=== PATIENT | female | born 1950 | race Caucasian/White ===

== ENCOUNTER → 2016-08-17 | Outpatient (CLI) | payer OTHER | END | disposition home or self-care (01) | LOC: CFH 07:12 | PROVIDERS: ATTEND Nurse Practitioner Family | DX: Q60.0 Renal agenesis, unilateral (principal); K21.9 Gastro-esophageal reflux disease without esophagitis; R11.0 Nausea | CPT/HCPCS: 76700 ==

== ENCOUNTER → 2016-10-16 | Outpatient (CLI) | payer OTHER ==
[~2016-10-16] MED LIST: AMLO10TA2 PO; ASPI-650 PO; CETI10CA PO; CHOL200012 PO; FOLI-17 PO; GEMF600T3 PO; LACT1CAP35 PO; LORA0.5T PO; LOSA1TAB17 PO; METH2.5T PO; OMEP-110 PO; PSYL660P PO; VITA1TAB19 PO; magnesium PO
[2016-10-16 12:37] LABS: ASPARTATE AMINO TRANSFERASE 48 U/L (15-37); BLOOD UREA NITROGEN 25 mg/dL (7-18)
== END | disposition home or self-care (01) ==
LOC: STAR 11:15
PROVIDERS: ATTEND Surgery
DX: Z01.818 Encounter for other preprocedural examination (principal)
CPT/HCPCS: 36415; 80053; 93005

== ENCOUNTER 2016-10-29 06:06 | Day surgery (SDC) | payer OTHER ==
[~2016-10-29] VITALS: Ht 162.6 cm; Wt 72.0 kg
[2016-10-29] MEDS ORDERED: BUPIVACAINE/PF-EPI 0.5% 1:200K ONE (06:55)
[2016-10-29] MEDS ORDERED: LACTATED RINGERS 1,000 ML IV SCH (06:59)
[2016-10-29 07:04] VITALS: BP 135/78
[2016-10-29] MEDS ORDERED: SCOPOLAMINE PATCH, 1.5MG PATCH.TD72 TD ONE ×2 (07:15→11:09)
[2016-10-29] MEDS ORDERED: ONDANSETRON 2MG/ML, 2ML ONE (07:24)
[2016-10-29] MEDS ORDERED: GLYCOPYRROLATE 0.2MG/1ML ONE (07:24)
[2016-10-29] MEDS ORDERED: ROCURONIUM 10 MG/ML ONE (07:24)
[2016-10-29] MEDS ORDERED: SUCCINYLCHOLINE 20 MG/ML, 10ML ONE (07:24)
[2016-10-29] MEDS ORDERED: EPHEDRINE 50 MG/ML, 1ML ONE (07:24)
[2016-10-29] MEDS ORDERED: DEXAMETHASONE 4 MG/ML, 1ML ONE (07:24)
[2016-10-29] MEDS ORDERED: NEOSTIGMINE 1 MG/ML, 10ML ONE (07:24)
[2016-10-29] MEDS ORDERED: KETOROLAC 30 MG/1 ML ONE (07:24)
[2016-10-29] MEDS ORDERED: PROPOFOL 10 MG/ML, 20ML ONE (07:24)
[2016-10-29] MEDS ORDERED: ATENOLOL 25 MG TABLET ONE (07:24)
[2016-10-29] MEDS ORDERED: ACETAMINOPHEN 325 MG TABLET PO PRN (08:00)
[2016-10-29] MEDS ORDERED: LABETALOL 5MG/ML, 20ML IV PRN (08:00)
[2016-10-29] MEDS ORDERED: MEPERIDINE/PF 25MG/0.5ML IVPush PRN (08:00)
[2016-10-29] MEDS ORDERED: PROMETHAZINE 25 MG/ML, 1ML IV PRN (08:00)
[2016-10-29] MEDS ORDERED: OXYcodone 5 MG/5 ML ORAL.SOL UDC PO PRN (08:00)
[2016-10-29] MEDS ORDERED: HYDROmorphone 1 MG/ML, 1ML IV PRN (08:00)
[2016-10-29] MEDS ORDERED: HYDROcodone/APAP 7.5-325MG/15ML UDC PO PRN (08:00)
[2016-10-29] MEDS ORDERED: EPHEDRINE 50 MG/ML, 1ML IVPush PRN (08:00)
[2016-10-29] MEDS ORDERED: ONDANSETRON 2MG/ML, 2ML IVPush PRN (08:00)
[2016-10-29] MEDS ORDERED: hydrALAzine 20 MG/ML, 1ML IV PRN (08:00)
[2016-10-29] MEDS ORDERED: MIDAZOLAM 1 MG/ML, 2ML IV PRN (08:00)
[2016-10-29] MEDS ORDERED: ACETAMINOPHEN 650 MG/20.3 ML UDC ONE (08:08)
[2016-10-29] MEDS ORDERED: OXYcodone 5 MG/5 ML ORAL.SOL UDC ONE (08:08)
[2016-10-29] MEDS ORDERED: FENTANYL PF 100 MCG/2ML ONE ×2 (08:08→08:36)
[2016-10-29] MEDS: FENTANYL PF 100 MCG/2ML IV PRN ×4 (08:09→08:37)
== END 2016-10-29 11:00 | disposition home or self-care (01) ==
LOC: OUT 06:06
PROVIDERS: ATTEND Surgery
DX: K80.10 Calculus of gallbladder with chronic cholecystitis without obstruction (principal); E78.00 Pure hypercholesterolemia, unspecified; I10 Essential (primary) hypertension; Z87.39 Personal history of other diseases of the musculoskeletal system and connective tissue; Z85.828 Personal history of other malignant neoplasm of skin; Z88.1 Allergy status to other antibiotic agents; Z88.5 Allergy status to narcotic agent; Z88.8 Allergy status to other drugs, medicaments and biological substances; Z98.890 Other specified postprocedural states
CPT/HCPCS: 47562; 88304; C1729; J0330; J1100; J1885; J2250; J2405; J2704; J2710; J3010; J7120; J3490

== ENCOUNTER → 2017-03-28 | Outpatient (CLI) | payer OTHER ==
[~2017-03-28] MED LIST changes: -CHOL200012 PO; +CHOL200074 PO; -LOSA1TAB17 PO; +LOSA1TAB22 PO
== END | disposition home or self-care (01) ==
LOC: CFH 11:13
PROVIDERS: ATTEND Internal Medicine
DX: Z12.31 Encounter for screening mammogram for malignant neoplasm of breast (principal)
CPT/HCPCS: 77067

== ENCOUNTER 2018-10-29 10:28 | Outpatient (CLI) | payer MEDICARE | END 2018-10-29 23:59 | disposition home or self-care (01) | LOC: CFH 10:28 | PROVIDERS: ATTEND Internal Medicine | DX: Z12.31 Encounter for screening mammogram for malignant neoplasm of breast (principal); Z13.820 Encounter for screening for osteoporosis; N95.8 Other specified menopausal and perimenopausal disorders; Z78.0 Asymptomatic menopausal state | CPT/HCPCS: 77080; 77067 ==

== ENCOUNTER → 2020-04-21 | Outpatient (CLI) | payer MEDICARE ==
[~2020-04-21] MED LIST changes: +AMLO-211 PO; -AMLO10TA2 PO; +ASPI-1026 PO; -ASPI-650 PO; +AZAT50TA9 PO; -FOLI-17 PO; +FOLI1TAB32 PO; +GEMF-31 PO; -GEMF600T3 PO; +GLUC-121 PO; +MULT200T12 PO; +ROSU5TAB PO; +[UNRECOGNIZED DRUG - CODE] PO
[2020-04-21 14:50] LABS: ALANINE AMINOTRANSFERASE 32 U/L (12-78); ALBUMIN 3.9 g/dL (3.4-5.0); ANION GAP 8 mmol/L (5-15); CALCIUM 9.7 mg/dL (8.5-10.1); CHLORIDE 105 mmol/L (98-107); CREATININE 0.76 mg/dL (0.55-1.02)
[2020-04-21 14:52] LABS: ALKALINE PHOSPHATASE 71 U/L (45-117); BILIRUBIN,TOTAL 0.5 mg/dL (0.2-1.0); TOTAL PROTEIN 7.3 g/dL (6.4-8.2)
== END | disposition home or self-care (01) ==
LOC: STAR 13:05
PROVIDERS: ATTEND Orthopaedic Surgery
DX: Z01.818 Encounter for other preprocedural examination (principal); R22.32 Localized swelling, mass and lump, left upper limb; Z20.822 Contact with and (suspected) exposure to COVID-19
CPT/HCPCS: 80053; 87635; 93005

== ENCOUNTER 2020-04-27 09:29 | Day surgery (SDC) | payer MEDICARE ==
[~2020-04-27] VITALS: Ht 160 cm; Wt 71.3 kg
[~2020-04-27 09:29] MED LIST changes: +EPHEDRINE 50 MG/ML, 1ML IVPush PRN; +FENTANYL PF 100 MCG/2ML IV PRN; +HYDROmorphone 1 MG/ML, 1ML INJ IVPush PRN; +LABETALOL 5MG/ML, 20ML IV PRN; +ONDANSETRON 2MG/ML, 2ML IVPush PRN; +OXYcodone 5 MG/5 ML ORAL.SOL UDC PO PRN; +PROMETHAZINE 25 MG/ML, 1ML IVPush PRN; +hydrALAzine 20 MG/ML, 1ML IV PRN
[2020-04-27] MEDS ORDERED: BUPIVACAINE/PF 0.5% ONE (10:00)
[2020-04-27] MEDS ORDERED: LIDOCAINE 1%, 20ML ONE (10:00)
[2020-04-27 10:19] VITALS: BP 145/85
[2020-04-27] MEDS ORDERED: LACTATED RINGERS 1,000 ML IV SCH (10:30)
[2020-04-27] MEDS ORDERED: CHLORHEXIDINE 15 ML UDC MM ONE (10:30)
[2020-04-27] MEDS ORDERED: ACETAMINOPHEN 500 MG TABLET PO ONE (10:30)
[2020-04-27] MEDS ORDERED: PROPOFOL 10 MG/ML, 20ML ONE (15:34)
[2020-04-27] MEDS ORDERED: CEFAZOLIN 1,000 MG ONE (15:34)
== END 2020-04-27 13:30 | disposition home or self-care (01) ==
LOC: OUT 09:29
PROVIDERS: ATTEND Orthopaedic Surgery
DX: G56.03 Carpal tunnel syndrome, bilateral upper limbs (principal); M65.321 Trigger finger, right index finger; R22.31 Localized swelling, mass and lump, right upper limb; M06.9 Rheumatoid arthritis, unspecified; I10 Essential (primary) hypertension; E78.5 Hyperlipidemia, unspecified; K21.9 Gastro-esophageal reflux disease without esophagitis; Z79.899 Other long term (current) drug therapy; Z87.891 Personal history of nicotine dependence; Z88.2 Allergy status to sulfonamides; Z88.8 Allergy status to other drugs, medicaments and biological substances; Z82.61 Family history of arthritis; Z82.3 Family history of stroke; Z82.49 Family history of ischemic heart disease and other diseases of the circulatory system
CPT/HCPCS: 26055; 26160; 64721; 88305; J0690; J2704